=== PATIENT | male | born 1940 | race Caucasian/White ===

== ENCOUNTER → 2016-10-01 | Outpatient (CLI) | payer MEDICARE, BC ==
--- NOTE | 2016-10-01 18:01 | RADRPT ---
PROCEDURE: XR Pelvis and Hips. CLINICAL INDICATION: Pelvic pain. Bilateral hip pain. TECHNIQUE: Five views. Frontal pelvis. Frontal and lateral right hip. Frontal and lateral left hip. COMPARISON: No prior studies are available for comparison. 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 There is no fracture, dislocation, or loosening. The sacroiliac joints are unremarkable. There is no lytic or blastic lesion. There has been prior lower lumbar spine surgery. IMPRESSION: 1. Satisfactory postoperative appearance of both hips. RPTAT: QQ .Jackson Escalera MD, MD Date Time Electronically viewed and signed by .Jackson Escalera MD, on 10/01/2016 18:01 .R/
== END | disposition home or self-care (01) ==
LOC: HKI 15:24
PROVIDERS: ATTEND Orthopaedic Surgery
DX: Z47.1 Aftercare following joint replacement surgery (principal); Z96.643 Presence of artificial hip joint, bilateral; M54.16 Radiculopathy, lumbar region
CPT/HCPCS: 73523; G0463